=== PATIENT | female | born 1955 | race African-American/Black ===

== ENCOUNTER 2025-01-24 08:52 | Emergency (ER) | payer MEDICARE ==
[~2025-01-24] VITALS: Ht 162.6 cm; Wt 73.9 kg
[2025-01-24 08:56] VITALS: PULSE 83; RESP 18; TEMP 97.1; O2SAT 99
[2025-01-24] MEDS ORDERED: NEURONTIN100 MG PO (09:19)
== END 2025-01-24 09:35 | disposition home or self-care (01) ==
LOC: ER 08:56
DX: M54.41 Lumbago with sciatica, right side (principal)
CPT/HCPCS: 99283